=== PATIENT | female | born 1985 | race Native Hawaiian/Other Pacific Islander ===

== ENCOUNTER 2018-08-28 10:15 | Inpatient (IN) | payer BC ==
[2018-08-28 12:05] VITALS: BMI 27.2
[2018-08-28] MEDS: Lactated Ringer's 1,000 ML IV ONE ×4 (13:15→23:00)
[2018-08-28] MEDS ORDERED: Lactated Ringer's 1,000 ML IV ONE (13:15)
[2018-08-28] MEDS ORDERED: Oxytocin 30 UNIT in NS 500 ml 30 UNITS/500 ML BAG IV ONE ×2 (13:18→22:00)
[2018-08-28] MEDS ORDERED: OXYTOCIN/0.9 % NS 20 UNIT/1,000 ML BAG IV ONE (13:19)
[2018-08-28 13:46] LABS: BASO % 0.6 % (0.0-2.0); EOS # 0.1 K/uL (0.0-0.7); HEMOGLOBIN 11.4 g/dL (12.0-16.0); LYMPH # 2.1 K/uL (1.0-4.3); LYMPH % 24.4 % (20.0-40.0); MEAN CELL VOLUME 89.2 fl (81.0-99.0); MEAN CORPUSCULAR HEMOGLOBIN 30.3 pg (27.0-31.0); MEAN PLATELET VOLUME 9.6 fl (7.2-11.7); MONO # 0.4 K/uL (0.0-0.8); MONO % 5.3 % (0.0-10.0); NEUT # 5.8 K/uL (1.8-7.0); NEUT % 68.7 % (50.0-75.0); NRBC % 0.1 % (0.0-0.0); RBC 3.76 Mil/uL (3.80-5.20); RED CELL DISTRIBUTION WIDTH 14.3 % (11.5-14.5); WHITE BLOOD COUNT 8.5 K/uL (4.8-10.8)
[2018-08-28] MEDS ORDERED: Lactated Ringer's 1,000 ML IV SCH (14:30)
--- NOTE | 2018-08-28 21:47 | OBADHP ---
Datetime: 08/28/2018 10:59 Admit Comment, IP Provider: PNP: Dr. Ambrose 33 y/o @ 39.2 wks, LMP: 11/26/17 w/RAMON 09/02/18 c/o fluid loss at 8:30am this morning which castillo kened her from sleep. She reports another gush of fluid 10 minutes later as well as intermittent ctx, 09/15 since 840am. +FM _ some vaginal spotting. She endorses some lightheadedness _ nausea but denies f/c/vomitting, cp or sob. OBGYNhx: denies PMH: denies Meds: PNV Allergies: NKA Surghx: denies Famhx: denies Sochx: denies ROS: 12 points reviewed and are neg unless otherwise mentioned in HPI PE: Cardio: s1s2 RRR Lungs: cta b/l no adventitious sounds Abd: gravid, soft, nontender, no rigidity noguarding Pelvic: Ext: +1 pitting edema, calves nontender A/P: 33 y/o @ 39.2 wk, clinically stable c/o fluid loss. -FHR in 140's -sterile spec exam: rom confirmed; 1cm, 50%, -3 -Admit to unit -Initiate labor protocol Patient seen and examined with Dr. José -Claire Pierce, PGY-1 Extremities - PN: Normal Abdomen - PN: Normal Lungs - PN: Normal Heart - PN: Normal General - PN: Normal FHR - Baseline A Provider: 140 Membranes, Provider: Ruptured Gestation - Est Wks by US: 39.2 Pool Provider: Positive IP Hx Assessment: The History has been Reviewed and is Current Vital Signs Provider: Reviewed; Within Normal Limits IP Chief Complaint: Suspected ruptured membranes NICHD Variability Prov Fetus A: Moderate 6-25bpm NICHD Accel Fetus A IP Provider: 15X15 FHR Category Provider Fetus A: Category I NICHD Decel Fetus A IP Provider: None Dilatation, Provider: 1 Effacement, Provider: 50 Station, Provider: -1 EGA AdmitDate IP: 39.2 IP Adm Impression: Term, intrauterine IP Admit Plan: Observation/Evaluation
--- NOTE | 2018-08-28 21:50 | OBPN ---
Datetime: 08/28/2018 21:46 IP Progress Impression Other: PROM IP Procedures: Sterile Vag Exam IP Progress Plan: Augmentation Contraction Comments Provider: q9-10min FHR - Baseline A Provider: 140s IP Progress Note Comment: Patient without complaints at this time. Plan to start Pitocin augmentati on. heart tracing category 1. Discussed plan with patient and all patient questions answered. Vital Signs Provider: Reviewed; Within Normal Limits NICHD Accel Fetus A IP Provider: 15X15 FHR Category Provider Fetus A: Category I NICHD Variability Prov Fetus A: Moderate 6-25bpm Dilatation, Provider: 2 Effacement, Provider: 75 Station, Provider: -2 NICHD Decel Fetus A IP Provider: None Datetime: 08/28/2018 10:59 Pool Provider: Positive Membranes, Provider: Ruptured Gestation - Est Wks by US: 39.2
[2018-08-28] MEDS: Lactated Ringer's 1,000 ML IV SCH (23:15)
[2018-08-28] MEDS ORDERED: BUPIVACAINE HCL EPI ONE (23:25)
[2018-08-28] MEDS ORDERED: FENTANYL EPI ONE (23:25)
[2018-08-29] MEDS: Lactated Ringer's 1,000 ML IV SCH (10:00)
--- NOTE | 2018-08-29 21:24 | OBDS ---
DELIVERY PERSONNEL Delivery Doctor: Rosemary Wisdom MD Printing Bindery Assistant: Tai Tadeo Anesthesiologist: Sade Cooper MD MATERNAL INFORMATION Delivery Anesthesia: Epidural Medications in Delivery: Oxytocin Placenta Cultured: No Maternal Complications: None Provider Comments: Delivered a live baby boy at 8:50 PM the baby was bulb suctioned on the perineum then transferred to the maternal chest. The cord was clamped and cut 3 vessels noted cord blood was obtained and sent to the lab. The placenta was delivered at 8:55 PM intact, the estimated blood loss was 100 cc. There was a first-degree laceration was repaired with 2-0 Rapide. The mother tolerated the procedure well the baby went to the well baby nursery with Apgars of 9 9 weighing 3400 g LABOR SUMMARY EDC: 09/02/2018 00:00 No. Babies in Womb: 1 Attempted: No Labor Anesthesia: None LABOR INFORMATION Reason for Induction: Not Applicable Onset of Labor: 08/29/2018 08:25 Complete Dilatation: 08/29/2018 19:00 Oxytocin: Augmentation Group B Beta Strep: Done, Result Unknown Steroids Given: None Reason Steroids Not Administered: Not Applicable MEMBRANES Membranes Rupture Method: Spontaneous Rupture of Membranes: 08/28/2018 08:30 Length of Rupture (hrs): 36.33 Amniotic Fluid Color: Clear (Annotations: clear with light pink bloody show as per pt.) Amniotic Fluid Amount: Small Amniotic Fluid Odor: Normal (Annotations: as per pt.) STAGES OF LABOR Stage 1 hrs: 10 Stage 1 min: 35 Stage 2 hrs: 1 Stage 2 min: 50 Stage 3 hrs: 0 Stage 3 min: 6 Total Time in Labor hrs: 12 Total Time in Labor min: 31 VAGINAL DELIVERY Episiotomy: None Laceration Type: Perineal Initial Vag Sponge Count: 15 Final Vag Sponge Count: 15 Initial Vag Sharps Count: 1 Final Vag Sharps Count: 1 Sponge Count Correct: Yes Sharps Count Correct: Yes BABY A INFORMATION Delivery Date/Time: 08/29/2018 20:50 Method of Delivery: Vaginal Born in Route : No : N/A Forceps: N/A Vacuum Extraction: N/A Shoulder Dystocia : No SHOULDER DYSTOCIA BABY A Delivery Date/Time: 08/29/2018 20:50 PRESENTATION/POSITION BABY A Presentation: Cephalic Cephalic Presentation: Vertex PLACENTA INFORMATION BABY A Placenta Delivery Time : 08/29/2018 20:56 Placenta Method of Delivery: Spontaneous Placenta Status: Delivered SCORES BABY A Heart Rate 1 min: >100 bpm Resp Effort 1 min: Good Cry Reflex Irritability 1 min: Cough or Sneeze or Pulls Away Muscle Tone 1 min: Active Motion Color 1 min: Body Pillow, Extremities Blue Resuscitation Effort 1 min: Tactile Stimulation SCORE 1 MIN: 9 Heart Rate 5 min: >100 bpm Resp Effort 5 min: Good Cry Reflex Irritability 5 min: Cough or Sneeze or Pulls Away Muscle Tone 5 min: Active Motion Color 5 min: Body Pillow, Extremities Blue Resuscitation Effort 5 min: Tactile Stimulation SCORE 5 MIN: 9 INFORMATION BABY A Gestational Age at Delivery: 39.6 Gestational Status: Term Outcome : Liveborn Infant Condition : Stable Infant Sex: Male IDENTIFICATION/MEDS BABY A ID Band Number: [id number] ID Band Location: Left Leg; Left Arm CORD INFORMATION BABY A No. Cord Vessels: 3 Nuchal Cord : N/A Cord Blood Taken: Yes Infant Suction: None ASSESSMENT BABY A Infant Complications: None Physical Findings at Delivery: Within Normal Limits Respirations: Appears Normal Resource Management Specialist/ALS Called : No Transferred To: Remains with Mother
[2018-08-29] MEDS ORDERED: Benzocaine/Menthol SPRAY TOP PRN (22:54)
[2018-08-29] MEDS ORDERED: OXYTOCIN/0.9 % NS 20 UNIT/1,000 ML BAG IV ONE (22:54)
[2018-08-29] MEDS ORDERED: Oxycodone/Acetaminophen 5/325 mg Tab PO PRN ×2 (22:54→23:13)
[2018-08-29] MEDS ORDERED: Oxytocin 30 UNIT in NS 500 ml 30 UNITS/500 ML BAG IV ONE (22:54)
[2018-08-30] MEDS: Benzocaine/Menthol SPRAY TOP PRN (01:22)
[2018-08-30 07:54] LABS: BASO % 0.3 % (0.0-2.0); EOS # 0.1 K/uL (0.0-0.7); EOS % 0.4 % (0.0-4.0); HEMOGLOBIN 7.4 g/dL (12.0-16.0); LYMPH # 2.1 K/uL (1.0-4.3); LYMPH % 16.7 % (20.0-40.0); MEAN CELL VOLUME 88.5 fl (81.0-99.0); MEAN CORPUSCULAR HGB CONC 33.9 g/dL (33.0-37.0); MEAN PLATELET VOLUME 9.2 fl (7.2-11.7); MONO # 0.6 K/uL (0.0-0.8); MONO % 4.8 % (0.0-10.0); NEUT # 9.9 K/uL (1.8-7.0); NEUT % 77.8 % (50.0-75.0); RBC 2.46 Mil/uL (3.80-5.20); RED CELL DISTRIBUTION WIDTH 14.4 % (11.5-14.5)
[2018-08-30 08:26] LABS: WHITE BLOOD COUNT 12.8 K/uL (4.8-10.8)
[2018-08-30 09:40] LABS: BASO # 0.1 K/uL (0.0-0.2); BASO % 0.7 % (0.0-2.0); EOS # 0.1 K/uL (0.0-0.7); EOS % 0.6 % (0.0-4.0); HEMOGLOBIN 8.1 g/dL (12.0-16.0); LYMPH # 2.8 K/uL (1.0-4.3); LYMPH % 18.3 % (20.0-40.0); MEAN CORPUSCULAR HEMOGLOBIN 29.7 pg (27.0-31.0); MEAN PLATELET VOLUME 9.3 fl (7.2-11.7); MONO # 0.7 K/uL (0.0-0.8); MONO % 4.4 % (0.0-10.0); NEUT # 11.7 K/uL (1.8-7.0); RBC 2.71 Mil/uL (3.80-5.20); RED CELL DISTRIBUTION WIDTH 14.7 % (11.5-14.5); WHITE BLOOD COUNT 15.4 K/uL (4.8-10.8)
--- NOTE | 2018-08-30 10:47 | OBPPN ---
Datetime: 08/30/2018 10:44 PP Pain Prov: Within normal limits PP Nausea Prov: Denies PP Flatus Prov: Yes PP Breasts Prov: Normal PP Heart Prov: Normal PP Lungs Prov: Normal PP Abdomen/Uterus Prov: Normal PP Lochia Prov: Normal PP Vulva/Perineum Prov: Normal PP CVA Tenderness Prov: Normal PP Extremities Prov: Normal PP Comments Phys Exam Prov: Fundus firm under umbilicus PP Impression Prov: Normal progression PP Plan Prov: Continue present management PP Progress Note Prov: Patient denies CP, no SOB, no n/V, tolerating PO diet, ambulating/voiding wel l, mild lochia, abdominal pain tolerable with meds A/P PPD #1 1. Continue orders 2. Motrin/Percocet prn pain 3. Encourage ambulation/ IP PP Procedures: None Vital Signs Provider PP: Reviewed; Within Normal Limits
[2018-08-31] MEDS: Benzocaine/Menthol SPRAY TOP PRN (08:29)
--- NOTE | 2018-08-31 10:05 | OBDCSUM ---
Datetime: 08/31/2018 10:03 Discharged to, Provider: Home Follow up at, Provider: [facility]charge Diagnosis, Provider: Term Delivered Follow up in weeks, Provider: 6 weeks Disch Activity Restrictions: No sexual activity; Nothing in vagina - [place], tampons, douche
--- NOTE | 2018-08-31 10:05 | OBPPN ---
Datetime: 08/31/2018 10:03 PP Pain Prov: Within normal limits PP Nausea Prov: Denies PP Flatus Prov: Yes PP Breasts Prov: Normal PP Heart Prov: Normal PP Lungs Prov: Normal PP Abdomen/Uterus Prov: Normal PP Lochia Prov: Normal PP Vulva/Perineum Prov: Normal PP CVA Tenderness Prov: Normal PP Extremities Prov: Normal PP Progress Prov: Normal PP Impression Prov: Normal progression PP Plan Prov: Discharge PP Progress Note Prov: She feels fine A; PPD day 2 Anemia - asymptpomatic PLAN: discharge home and follow up in 6w [place] 90 Vital Signs Provider PP: Reviewed; Within Normal Limits
[2018-08-31 19:11] VITALS: BP 118/71; PULSE 69; RESP 20; TEMP 97.8; O2SAT 96
== END 2018-08-31 13:35 | disposition home or self-care (01) | DRG 807 ==
LOC: H.EROB2 10:15 → H.L&D 13:13 → H.OB/GYN 08-29 23:00
PROVIDERS: ADMIT Obstetrics & Gynecology; ATTEND Obstetrics & Gynecology
PROC: 4A1HXCZ Monitoring of Products of Conception, Cardiac Rate, External Approach (ICD-10-PCS; 2018-08-28)
PROC: 10E0XZZ Delivery of Products of Conception, External Approach (ICD-10-PCS; principal; 2018-08-29)
PROC: 0HQ9XZZ Repair Perineum Skin, External Approach (ICD-10-PCS; 2018-08-29)
DX: O70.0 First degree perineal laceration during delivery (principal); Z37.0 Single live birth; Z3A.39 39 weeks gestation of pregnancy; O99.02 Anemia complicating childbirth